=== PATIENT | female | born 1975 | race Caucasian/White ===

== ENCOUNTER 2017-01-09 12:42 | Emergency (ER) | payer MEDICAID ==
[2017-01-09 12:42] VITALS: BMI 21.9
[2017-01-09 13:04] VITALS: TEMP 98.5
--- NOTE | 2017-01-09 13:56 | C.PDOC ---
History Of Present Illness CO RDZ, VERTIGO NAUSEA SINCE YEST. WORSE W POSITION CHANGE. PS RECENT SINUSITIS. DENIES HO MIGRAINE, FEVER. ALSO CO ANXIETY EXAC DUE TO RDZ AND VERTIGO. NOT ON CHRONIC ANXIETY MEDS. "I GET THIS WAY WHEN I FEEL SCARED" EXAM MOD DIST NONTOXIC HEENT +L FAST HORIZ NYSTAG W INDUCIBLE VERTIGO PSYCH ANXIOUS CRYING BUT CONSOLABLE; NO ACTIVE PSYCHOSIS, SI SA NEURO NO FOCAL DEF REMAINDER NEG Time Seen by Provider: 01/09/17 13:17 Chief Complaint (Nursing): Headache History Per: Patient History/Exam Limitations: no limitations Onset/Duration Of Symptoms: Days Current Symptoms Are (Timing): Still Present Recent travel outside of the [place]: No Past Medical History Reviewed: Historical Data, Nursing Documentation, Vital Signs Vital Signs: Last Vital Signs Temp 98.5 F 01/09/17 12:58 Pulse 58 L 01/09/17 16:23 Resp 18 01/09/17 16:23 BP 100/66 01/09/17 16:23 Pulse Ox 100 01/09/17 16:23 - Medical History PMH: Anxiety, Bipolar Disorder, Depression Denies: Chronic Kidney Disease - [facility] Procedures INJECT/INFUSE NEC (02/07/15) Family History: States: Unknown Family Hx - Social History Hx Tobacco Use: Yes (10 per day) Hx Alcohol Use: Yes Hx Substance Use: Yes (marijuana) - Immunization History Hx Tetanus Toxoid Vaccination: No Hx Influenza Vaccination: No Hx Pneumococcal Vaccination: No Review Of Systems Except As Marked, All Systems Reviewed And Found Negative. Constitutional: Negative for: Fever, Chills Cardiovascular: Negative for: Chest Pain Respiratory: Negative for: Cough, Shortness of Breath Gastrointestinal: Positive for: Nausea. Negative for: Vomiting Skin: Negative for: Rash Neurological: Positive for: Headache, Dizziness. Negative for: Weakness, Numbness Psych: Positive for: Anxiety Physical Exam - Physical Exam Appears: Non-toxic, Other (MODERATE DISTRESS) Skin: Normal Color, Warm, Dry Head: Atraumatic, Normacephalic Eye(s): bilateral: PERRL, EOMI, left: Other (+L FAST HORIZ NYSTAG W INDUCIBLE VERTIGO) Ear(s): Bilateral: Normal Nose: Normal Oral Mucosa: Moist Neck: Normal ROM, Supple Chest: Symmetrical Cardiovascular: Rhythm Regular Respiratory: Normal Breath Sounds, No Rales, No Rhonchi, No Wheezing Gastrointestinal/Abdominal: Soft, No Tenderness, No Guarding, No Rebound Back: Normal Inspection Extremity: Normal ROM, Capillary Refill (< 2 SEC.) Neurological/Psych: Oriented x3, Other (PSYCH ANXIOUS CRYING BUT CONSOLABLE; NO ACTIVE PSYCHOSIS, SI SA. NEURO NO FOCAL DEFIFICTS.) ED Course And Treatment O2 Sat by Pulse Oximetry: 98 (RA) Pulse Ox Interpretation: Normal - CT Scan/US CT HEAD Other Rad Studies (CT/US): Read By Radiologist, Radiology Report Reviewed CT/US Interpretation: IMPRESSION: No acute intracranial pathology identified. Progress - Re-Evaluation Re-evaluation Note: 01/09/17 14:01 CT HEAD, UA, TYLENOL, XANAX, TORADOL, ANTIVERT, REGLAN. 01/09/17 15:43 VERTIGO, ANXIETY IMPROVED. CO PERSIST RDZ TOP OF HEAD. PS HAS INTERMIT RDZ EVERY 2-3 MONTHS, PREV DX CLUSTER MIGRAINE. NEURO INTACT. SCALP EXAM NEG 01/09/17 17:14 RDZ RESOLVED. STEADY GAIT. WILL DC - Data Reviewed Data Reviewed: Diagnostic imaging, Old records Disposition Counseled Patient/Family Regarding: Studies Performed, Diagnosis, Need For Followup, Rx Given - Disposition Referrals: YOUR,PMD [Other] Disposition: HOME/ ROUTINE Disposition Time: 17:14 Condition: IMPROVED Prescriptions: Meclizine [Antivert] 50 mg PO TID PRN #21 tab PRN Reason: Dizziness Ondansetron [Zofran Odt] 4 mg PO TID PRN #9 odt PRN Reason: Nausea/Vomiting Instructions: Vertigo (ED), Migraine Headache (ED) Forms: [facility] ([place]), Work Excuse - Clinical Impression Clinical Impression: Migraine, Anxiety, Vertigo - Scribe Statement The provider has reviewed the documentation as recorded by the Scribe SM All medical record entries made by the Scribe were at my direction and personally dictated by me. I have reviewed the chart and agree that the record accurately reflects my personal performance of the history, physical exam, medical decision making, and the department course for this patient. I have also personally directed, reviewed, and agree with the discharge instructions and disposition.
[2017-01-09 14:49] LABS: RBC URINE 3 /hpf (0-3); URINE BACTERIA RARE (<OCC); URINE BILIRUBIN NEGATIVE (NEGATIVE); URINE BLOOD 1+ (NEGATIVE); URINE COLOR Yellow (YELLOW); URINE GLUCOSE (UA) NORMAL (Normal); URINE KETONE 1+ mg/dL (NEGATIVE); URINE LEUKOCYTE ESTERASE NEG Leu/uL (Negative); URINE PROTEIN NEGATIVE (NEGATIVE); URINE UROBILINOGEN NORMAL mg/dL (0.2-1.0); WBC URINE 1 /hpf (0-5)
--- NOTE | 2017-01-09 15:03 | CT ---
PROCEDURE: CT HEAD WITHOUT CONTRAST. HISTORY: headache, vertigo COMPARISON: None available. TECHNIQUE: Axial computed tomography images were obtained through the head/brain without intravenous contrast. Radiation dose: Total exam DLP = 857.94 mGy-cm. This CT exam was performed using one or more of the following dose reduction techniques: Automated exposure control, adjustment of the mA and/or kV according to patient size, and/or use of iterative reconstruction technique. FINDINGS: HEMORRHAGE: No intracranial hemorrhage. BRAIN: No mass effect or edema. The thompson-white matter differentiation appears intact. Please note that MRI with diffusion imaging is more sensitive in the detection of acute ischemic event. VENTRICLES: No hydrocephalus. CALVARIUM: Unremarkable. PARANASAL SINUSES: Unremarkable as visualized. No significant inflammatory changes. MASTOID AIR CELLS: Unremarkable as visualized. No inflammatory changes. OTHER FINDINGS: None. IMPRESSION: No acute intracranial pathology identified.
[2017-01-09 16:24] VITALS: BP 100/66; PULSE 58; RESP 18
[2017-01-09 17:16] VITALS: O2SAT 98
== END 2017-01-09 17:23 | disposition home or self-care (01) ==
LOC: C.ER 12:42
DX: G43.909 Migraine, unspecified, not intractable, without status migrainosus (principal); F41.9 Anxiety disorder, unspecified; R42 Dizziness and giddiness
CPT/HCPCS: 70450; 80324; 80345; 80346; 80349; 80353; 80358; 80361; 81001; 83992; 96372; 96374; 96375; 99285; J1885; J2765; J3030